=== PATIENT | female | born 1960 | race Caucasian/White ===

== ENCOUNTER 2023-05-09 15:11 | Emergency (ER) | payer BC ==
[~2023-05-09] VITALS: Ht 162.6 cm; Wt 79.8 kg
[2023-05-09 15:23] VITALS: BP_SYST 119; PULSE 79; RESP 19; TEMP 99.9; O2SAT 90
[2023-05-09] MEDS: IPRATROPIUM/ALBUTEROL SULFATE 3 ML AMPUL.NEB (DUONEB) INH ONE ×2 (15:34→16:23)
[2023-05-09] MEDS: predniSONE 20 MG TABLET PO ONE (15:46)
[2023-05-09] MEDS: guaiFENesin/DEXTROMETHORPHAN 10 ML UDC PO ONE (15:46)
[2023-05-09 16:25] LABS: INFLUENZA TYPE A NEGATIVE (NEGATIVE); INFLUENZA TYPE B NEGATIVE (NEGATIVE)
[2023-05-09] MEDS: ACETAMINOPHEN 500 MG TABLET PO ONE (16:31)
[2023-05-09] MEDS: AZITHROMYCIN 250 MG TABLET PO ONE (17:24)
[2023-05-09] MEDS ORDERED: PRED20TA PO (17:47)
[2023-05-09] MEDS ORDERED: ZIT250 PO (17:47)
[2023-05-09] MEDS ORDERED: ALBMDI INH (17:47)
[2023-05-09 17:56] VITALS: BP_SYST 119; PULSE 83; RESP 18; TEMP 98.6; O2SAT 93
== END 2023-05-09 17:55 | disposition home or self-care (01) ==
LOC: SED 15:11
DX: J45.901 Unspecified asthma with (acute) exacerbation (principal); Z20.822 Contact with and (suspected) exposure to COVID-19
CPT/HCPCS: 99284; 71045; 87426; 36415; 94640; 87804 ×2; J7512; Q0144; 94760

== ENCOUNTER 2023-10-31 11:43 | Emergency (ER) | payer BC ==
[~2023-10-31] VITALS: Ht 162.6 cm; Wt 74.8 kg
[~2023-10-31 11:43] MED LIST: ALBMDI INH; PRED20TA PO; ZIT250 PO
[2023-10-31 11:51] VITALS: BP_SYST 130; PULSE 83; RESP 18; TEMP 98.3; O2SAT 93
[2023-10-31] MEDS: IPRATROPIUM/ALBUTEROL SULFATE 3 ML AMPUL.NEB (DUONEB) INH ONE (12:13)
[2023-10-31 12:20] LABS: BASOPHILS # (AUTO) 0.1 K/uL (0.0-0.2); BASOPHILS % (AUTO) 0.8 % (0.0-2.0); EOSINOPHILS # (AUTO) 1.6 K/uL (0.0-0.4); EOSINOPHILS % (AUTO) 17.2 % (0.0-4.0); HEMATOCRIT 41.8 % (36-48); HEMOGLOBIN 13.8 g/dL (12.0-16.0); LYMPHOCYTES # (AUTO) 2.3 K/uL (1.0-5.5); LYMPHOCYTES % (AUTO) 25.5 % (20.5-51.5); MEAN CORPUSCULAR HEMOGLOBIN 32 pg (27-31); MEAN CORPUSCULAR HGB CONC 33 % (32-36); MEAN CORPUSCULAR VOLUME 96 fL (79.0-98.0); MONOCYTES # (AUTO) 0.7 K/uL (0.0-1.0); MONOCYTES % (AUTO) 7.3 % (1.7-9.3); NEUTROPHILS # (AUTO) 4.5 K/uL (1.8-7.7); NEUTROPHILS % (AUTO) 49.2 % (40.0-70.0); PLATELET COUNT (AUTO) 342 K/uL (130-430); RED BLOOD CELL COUNT(AUTO) 4.38 MIL/uL (4.2-6.2); RED CELL DISTRIBUTION WIDTH 13.7 % (9.0-15.0); WHITE BLOOD COUNT (AUTO) 9.1 K/uL (4.8-10.8)
[2023-10-31] MEDS: predniSONE 20 MG TABLET PO ONE (12:24)
[2023-10-31 12:29] LABS: CREATININE 0.82 mg/dL (0.55-1.30); POTASSIUM 4.6 mmol/L (3.5-5.1)
[2023-10-31] MEDS ORDERED: CEFU250T85 PO (13:09)
[2023-10-31] MEDS ORDERED: METH-776 PO (13:09)
[2023-10-31 13:22] VITALS: BP_SYST 118; PULSE 69; RESP 22; O2SAT 97
== END 2023-10-31 13:22 | disposition home or self-care (01) ==
LOC: SED 11:43
DX: J45.909 Unspecified asthma, uncomplicated (principal); R20.2 Paresthesia of skin; R03.0 Elevated blood-pressure reading, without diagnosis of hypertension; Z79.899 Other long term (current) drug therapy; Z79.2 Long term (current) use of antibiotics
CPT/HCPCS: 99285; 71045; 80048; 85025; 84484; 36415; 93005; 94640; J7512; 94760